=== PATIENT | male | born 1965 | race Caucasian/White ===

== ENCOUNTER 2018-01-22 20:44 | Inpatient (IN) | payer OTHER ==
[~2018-01-22] VITALS: Ht 182.9 cm; Wt 129.3 kg
--- NOTE | ~2018-01-22 | EKG ---
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
--- NOTE | ~2018-01-22 | EKG ---
[address] [address] ELECTROCARDIOGRAM REPORT Name: MAHESH MOTT Room #: 419-P ADM IN M.R.#: [id number] Admission: 01/22/18 Attend Phys: Frank Swann MD Discharge: Date of : 65 Report #: [id number] THIS REPORT FOR: //name// [facility] Test Date: 2018-01-23 Test Time: 07:35:17 Pat Name: MAHESH MOTT Department: Room: 419 P Gender: M Hourly Associate: MIRANDA : 1965 Requested By: Cindy Cohen Order Number: [id number] MD: Gerardo Ayala Measurements Intervals [place] Rate: 101 P: 55 SD: 142 QRS: -8 QRSD: 87 T: 57 QT: 359 QTc: 466 Interpretive Statements Sinus tachycardia Baseline wander in lead(s) V2,V4 No previous ECG available for comparison Electronically Signed On 01-23-2018 8:40:09 CDT by Gerardo Ayala [email or web address] <ELECTRONICALLY SIGNED> By: Gerardo Ayala MD, [facility] 01/23/18 0840 0735 4 Gerardo Ayala MD, FACC /EPI
--- NOTE | ~2018-01-22 | 2DMMODE ---
[facility] [email or web address] [address] 2 D/M-MODE ECHOCARDIOGRAM Name: MAEHSH MOTT Room #: 419-P [facility] IN ..#: [id number] Admission: 01/22/18 Attend Phys: Frank Swann, Discharge: Date of : 65 Date of Service: 01/23/18 1413 Report #: [id number] THIS REPORT FOR: //name// APPROVED REPORT Study performed: 01/23/2018 13:27:14 EXAM: Comprehensive 2D, Doppler, and color-flow Echocardiogram Patient Location: Echo lab Room #: 419 Status: routine BSA: 2.48 HR: 104 bpm BP: 139/80 mmHg Rhythm: Tachycardia Other Information Study Quality: Adequate Indications Dyspnea CAD Chest Pain Hypertension/HDD 2D Dimensions RVDd: 27.99 mm IVSd: 9.83 (7-11mm) LVOT Diam: 21.36 (18-24mm) LVDd: 50.06 mm PWd: 9.46 (7-11mm) Ascending Ao: 30.45 (22-36mm) LVDs: 35.82 (25-40mm) Aortic Root: 31.39 mm Volumes Left Atrial Volume (Systole) Single Plane 4CH: 30.27 mL Single Plane 2CH: 33.69 mL LA ESV Index: 14.00 mL/m2 Aortic Valve AoV Peak David.: 1.23 m/s AO Peak Gr.: 6.04 mmHg LVOT Max P.73 mmHg LVOT Max V: 1.20 m/s ROHITH Vmax: 3.49 cm2 Pulmonary Valve [facility] [address] [place] [address] 2 D/M-MODE ECHOCARDIOGRAM Name: MOTTMAHESH L Room #: 419-P [facility] IN [facility]#: [id number] Admission: 01/22/18 Attend Phys: Frank Swann, Discharge: Date of : 65 Date of Service: 01/23/18 1413 Report #: [id number] PV Peak David.: 0.93 m/s PV Peak Gr.: 3.45 mmHg Left Ventricle The left ventricle is normal size. There is normal LV segmental wall motion. There is normal left ventricular wall thickness. The left ventricular systolic function is normal. The left ventricular ejection fraction is within the normal range. LVEF is 55%. Grade I - abnormal relaxation pattern. Right Ventricle The right ventricle is normal size. The right ventricular systolic function is normal. Atria The left atrium size is normal. The right atrium size is normal. Aortic Valve The aortic valve is normal in structure. No aortic regurgitation is present. There is no aortic valvular stenosis. Mitral Valve The mitral valve is normal in structure. Trace to mild mitral regurgitation. No evidence of mitral valve stenosis. Tricuspid Valve The tricuspid valve is normal in structure. There is no tricuspid valve regurgitation noted. Pulmonic Valve The pulmonary valve is normal in structure. There is no pulmonic valvular regurgitation. Great Vessels The aortic root is normal in size. IVC is not well visualized. Pericardium There is no pericardial effusion. <Conclusion> The left ventricle is normal size. There is normal left ventricular wall thickness. The left ventricular systolic function is normal. Grade I - abnormal relaxation pattern. The right ventricle is normal size. [facility] [address] [place] [address] 2 D/M-MODE ECHOCARDIOGRAM Name: MAHESH MOTT Room #: 419-P [facility] IN M.R.#: [id number] Admission: 01/22/18 Attend Phys: Frank Swann, Discharge: Date of : 65 Date of Service: 01/23/181412 Report #: [id number] The left atrium size is normal. The aortic valve is normal in structure. Trace to mild mitral regurgitation. There is no tricuspid valve regurgitation noted. There is no pericardial effusion. <ELECTRONICALLY SIGNED> By: Baudilio Mosher MD 01/23/181412 12 12 Baudilio Mosher MD /INF
[~2018-01-22 20:44] MED LIST: DAZIDOX10 MG PO; FLEXERIL PO; HYDROCODONE-AP1 EAC6 PO; IBUPROFEN 800800 M1 PO; MEDROL DOSPAK21 TA1 PO; NORCO 5-325 TA1 EACH PO; OXYCODONE HCL5 M1 PO; OXYCONTIN10 M1 PO; PERCOCET 5-3251 EACH PO; VICODIN 5-5001 EACH PO
[2018-01-22 20:48] VITALS: BP 171/107
[2018-01-22 21:18] LABS: URINE BILIRUBIN NEGATIVE (Negative); URINE BLOOD NEGATIVE (Negative); URINE CLARITY CLEAR; URINE COLOR YELLOW; URINE GLUCOSE-RANDOM* NEGATIVE (Negative); URINE KETONES NEGATIVE (Negative); URINE LEUKOCYTES-REFLEX NEGATIVE (Negative); URINE NITRITE-REFLEX NEGATIVE (Negative); URINE PROTEIN (DIPSTICK) TRACE (Negative)
[2018-01-22 21:25] LABS: ABSOLUTE NEUTROPHILS 4.2 thou/uL (1.4-8.2); BASOPHILS 0.9 % (0.0-2.0); EOSINOPHILS 1.7 % (0.0-3.0); HEMATOCRIT 47.6 % (42.0-52.0); HEMOGLOBIN 16.7 gm/dL (14.0-18.0); LYMPHOCYTES 29.6 % (24.0-44.0); MCH 33.1 pg (26.0-34.0); MCHC 35.1 g/dL (28.0-37.0); MCV 94.2 fL (80.0-100.0); PLATELET COUNT 321 thou/uL (150-400); POLYS 55.8 % (36.0-66.0); RBC 5.05 mil/uL (4.50-6.00); WBC 7.5 thou/uL (4.0-11.0)
[2018-01-22 21:25] LABS: AMP/METHAMP Negative (Negative); BARBITURATES Negative (Negative); BENZODIAZEPINES Negative (Negative); COCAINE Negative (Negative); METHADONE Negative (Negative); OPIATES POSITIVE (Negative); PCP Negative (Negative)
[2018-01-22 21:33] LABS: ANION GAP 12 mmol/L (7-16); BUN 11 mg/dL (7-18); CHLORIDE 102 mmol/L (98-107); CO2 23 mmol/L (21-32); GLUCOSE 167 mg/dL (74-106); SODIUM 137 mmol/L (136-145)
[2018-01-22 21:42] LABS: ALBUMIN 3.4 g/dL (3.4-5.0); LIPASE 203 U/L (73-393); SGOT 83 U/L (15-37); SGPT 112 U/L (30-65); TOTAL BILIRUBIN 0.6 mg/dL (<0.1-1.0); TOTAL PROTEIN 7.5 g/dL (6.4-8.2); TROPONIN-I <0.06 ng/mL (<0.06)
[2018-01-22 21:45] LABS: APTT 24.3 Seconds (24.5-32.8); D-DIMER 0.76 ug/mLFEU (0.19-0.50); PROTIME 9.5 Seconds (9.3-11.4)
[2018-01-22 22:55] VITALS: BP 174/109
[2018-01-22 22:57] VITALS: BP 174/109
[2018-01-22 23:45] VITALS: BP 157/111
[2018-01-23 01:00] VITALS: BP 132/103
[2018-01-23 06:17] LABS: TROPONIN-I <0.06 ng/mL (<0.06)
[2018-01-23 06:32] LABS: CHOLESTEROL 215 mg/dL (<200); HDL CHOLESTEROL 32 mg/dL (>40); LDL CHOLESTEROL 140 mg/dL (<100); TC:HDL 6.7 Ratio (Not establshd); TRIGLYCERIDE 219 mg/dL (<150); VLDL 44 mg/dL (<40)
[2018-01-23 07:21] VITALS: BP 139/80
[2018-01-23 10:57] LABS: % SATURATION 30 % (20-39); IRON 140 ug/dL (65-175); TIBC 469 ug/dL (250-450)
[2018-01-23 18:11] LABS: IgG 1142 mg/dL (700-1600)
[2018-01-23 19:34] VITALS: BP 130/87
[2018-01-23] MEDS ORDERED: VENTOLIN HFA 1818 GM INH (20:15)
[2018-01-23 23:07] LABS: GLYCOHEMOGLOBIN (HGB A1C) 6.3 % (4.8-5.6)
[2018-01-23 23:07] LABS: HAV IgM AB (ANTI-HAV IgM) Negative (Negative); HEPATITIS B SURFACE AG Negative (Negative); HEPATITIS C VIRUS AB >11.0 (0.0-0.9)
[2018-01-24 08:33] VITALS: BP 176/126
[2018-01-26 14:10] LABS: CERULOPLASMIN 24.9 mg/dL (16.0-31.0)
[2018-01-26 15:06] LABS: ANA INTERPRETATION Negative (Negative)
== END 2018-01-24 10:36 | disposition left against medical advice (07) | DRG 303 ==
LOC: ER 20:44 → EROBS 22:06 → 4E 22:06 → 3W 01-23 22:08
PROVIDERS: Nurse Practitioner; Nurse Practitioner Acute Care; Physician Assistant
DX: I25.119 Atherosclerotic heart disease of native coronary artery with unspecified angina pectoris (principal); F32.9 Major depressive disorder, single episode, unspecified; F12.90 Cannabis use, unspecified, uncomplicated; E78.5 Hyperlipidemia, unspecified; F17.210 Nicotine dependence, cigarettes, uncomplicated; B19.20 Unspecified viral hepatitis C without hepatic coma; K21.9 Gastro-esophageal reflux disease without esophagitis; M19.90 Unspecified osteoarthritis, unspecified site; R00.0 Tachycardia, unspecified; E66.9 Obesity, unspecified; F10.10 Alcohol abuse, uncomplicated; Z53.21 Procedure and treatment not carried out due to patient leaving prior to being seen by health care provider; Z90.49 Acquired absence of other specified parts of digestive tract; Z91.041 Radiographic dye allergy status; Z82.49 Family history of ischemic heart disease and other diseases of the circulatory system; Z95.5 Presence of coronary angioplasty implant and graft; Z91.14 Patient's other noncompliance with medication regimen; Z68.38 Body mass index [BMI] 38.0-38.9, adult; Z86.010 Personal history of colon polyps; Z79.899 Other long term (current) drug therapy
CPT/HCPCS: 10183; 10879